=== PATIENT | male | born 2000 | race Caucasian/White ===

== ENCOUNTER 2018-05-11 07:50 | Emergency (ER) | payer OTHER ==
[~2018-05-11] VITALS: Ht 177.8 cm; Wt 74.8 kg
[2018-05-11 08:26] LABS: ABSOLUTE EOSINOPHILS 0.2 thou/uL (0.0-0.7); ABSOLUTE LYMPHOCYTES 1.2 thou/uL (0.8-5.3); ABSOLUTE MONOCYTES 0.5 thou/uL (0.0-1.2); ABSOLUTE NEUTROPHILS 4.5 thou/uL (1.6-8.1); BASOPHILS 0.5 %; EOSINOPHILS 2.4 %; HEMATOCRIT 48.6 % (42.0-52.0); HEMOGLOBIN 16.2 gm/dL (14.0-18.0); LYMPHOCYTES 18.2 %; MCH 31.4 pg (26.0-34.0); MCHC 33.4 g/dL (28.0-37.0); MONOCYTES 7.4 %; MPV 8.6 fl. (7.2-11.1); NUCLEATED RBCS 0 /100WBC; PLATELET COUNT* 174 thou/uL (150-400); POLYS 71.5 %; RBC 5.17 mil/uL (4.50-6.00); RDW-CV 13.9 % (10.5-14.5); WBC 6.3 thou/uL (4.0-11.0)
[2018-05-11 08:39] LABS: CALCIUM 8.9 mg/dL (8.5-10.1); CREATININE 1.1 mg/dL (0.6-1.3); POTASSIUM 3.9 mmol/L (3.5-5.1)
[2018-05-11 08:44] LABS: URINE BILIRUBIN NEGATIVE (Negative); URINE BLOOD NEGATIVE (Negative); URINE CLARITY CLEAR; URINE COLOR YELLOW; URINE GLUCOSE-RANDOM NEGATIVE (Negative); URINE KETONES NEGATIVE (Negative); URINE LEUKOCYTES-REFLEX NEGATIVE (Negative); URINE NITRITE-REFLEX NEGATIVE (Negative); URINE PROTEIN NEGATIVE (Negative); URINE SPECIFIC GRAVITY <= 1.005 (1.005-1.030); URINE UROBILINOGEN 0.2 E.U./dl (0.2-1.0)
[2018-05-11 08:52] LABS: ALBUMIN 4.1 g/dL (3.4-5.0); TOTAL BILIRUBIN 0.2 mg/dL (<0.1-1.0); TOTAL PROTEIN 7.7 g/dL (6.4-8.2)
[2018-05-11] MEDS ORDERED: NORCO 5-325 TA1 EACH PO (09:51)
[2018-05-11] MEDS ORDERED: ZPAK PO (09:51)
[2018-05-11] MEDS ORDERED: VENTOLIN HFA 1818 GM INH (09:57)
[2018-05-11 10:06] VITALS: BP 115/63
== END 2018-05-11 10:55 | disposition home or self-care (01) ==
LOC: M.ERS 07:50
PROVIDERS: Emergency Medicine Emergency Medical Services
DX: S22.32XA Fracture of one rib, left side, initial encounter for closed fracture (principal); S32.038A Other fracture of third lumbar vertebra, initial encounter for closed fracture; F17.210 Nicotine dependence, cigarettes, uncomplicated; V86.09XA Driver of other special all-terrain or other off-road motor vehicle injured in traffic accident, initial encounter; Y93.89 Activity, other specified; Y92.89 Other specified places as the place of occurrence of the external cause; Y99.8 Other external cause status

== ENCOUNTER 2018-11-19 23:34 | Emergency (ER) | payer OTHER ==
[~2018-11-19] VITALS: Ht 177.8 cm; Wt 65.8 kg
[~2018-11-19 23:34] MED LIST: NORCO 5-325 TA1 EACH PO; VENTOLIN HFA 1818 GM INH; ZPAK PO
[2018-11-19] MEDS ORDERED: ULTRAM 50MG TAB50 MG PO (23:50)
[2018-11-19] MEDS ORDERED: KEFLEX500 M1 PO (23:50)
[2018-11-19] MEDS ORDERED: BACTRIM DS TAB1 EACH PO (23:50)
[2018-11-19 23:57] VITALS: BP 146/83
== END 2018-11-19 23:57 | disposition home or self-care (01) ==
LOC: M.ERS 23:34
DX: L03.114 Cellulitis of left upper limb (principal); F17.210 Nicotine dependence, cigarettes, uncomplicated

== ENCOUNTER 2019-09-23 11:21 | Emergency (ER) | payer OTHER ==
[~2019-09-23] VITALS: Ht 177.8 cm; Wt 72.6 kg
[~2019-09-23 11:21] MED LIST changes: +BACTRIM DS TAB1 EACH PO; +KEFLEX500 M1 PO; +ULTRAM 50MG TAB50 MG PO
[2019-09-23 12:37] LABS: INFLUENZA A ANTIGEN Negative (Negative); INFLUENZA B ANTIGEN Negative (Negative)
[2019-09-23] MEDS ORDERED: VENTOLIN HFA 1818 GM INH (13:19)
[2019-09-23] MEDS ORDERED: PREDNISONE 20 M20 MG PO (13:19)
[2019-09-23] MEDS ORDERED: TESSALON PERLE100 MG PO (13:19)
[2019-09-23 13:34] VITALS: BP 117/74
== END 2019-09-23 13:35 | disposition home or self-care (01) ==
LOC: M.ERS 11:21
PROVIDERS: Nurse Practitioner Family
DX: J20.9 Acute bronchitis, unspecified (principal); F17.210 Nicotine dependence, cigarettes, uncomplicated

== ENCOUNTER 2021-01-16 14:23 | Emergency (ER) | payer OTHER ==
[~2021-01-16] VITALS: Ht 177.8 cm; Wt 63.5 kg
[~2021-01-16 14:23] MED LIST changes: +PREDNISONE 20 M20 MG PO; +TESSALON PERLE100 MG PO
[2021-01-16] MEDS ORDERED: CEPHALEXIN500 MG PO (15:30)
[2021-01-16] MEDS ORDERED: BACTRIM DS TAB1 EACH PO (15:30)
[2021-01-16] MEDS ORDERED: IBUPROFEN 800800 M1 PO (15:30)
[2021-01-16 15:39] VITALS: BP 120/70
== END 2021-01-16 15:40 | disposition home or self-care (01) ==
LOC: M.ERS 14:23
DX: S81.812A Laceration without foreign body, left lower leg, initial encounter (principal); F17.210 Nicotine dependence, cigarettes, uncomplicated; Z91.048 Other nonmedicinal substance allergy status; W22.8XXA Striking against or struck by other objects, initial encounter; Y93.89 Activity, other specified; Y92.89 Other specified places as the place of occurrence of the external cause; Y99.8 Other external cause status